=== PATIENT | female | born 1975 | race Caucasian/White ===

== ENCOUNTER → 2022-10-19 14:21 | Outpatient (CLI) | payer OTHER, SELFPAY ==
--- NOTE | ~2022-10-19 | US_ITS ---
EXAMINATION: US transvaginal DATE: 10/19/2022 14:58 INDICATION: Excessive frequent menstruation. Comparison:No prior studies for comparison. TECHNIQUE: Multiple endovaginal sonographic images of the pelvis performed. FINDINGS: The uterus measures 9.7 x 5.9 x 6.8 cm. The endometrium is thickened and heterogeneous cuate uring 1.7 cm. There is a complicated right ovarian cyst measuring 3.5 x 2.3 x 3.3 cm with low level internal echoes and internal septation. Left ovary is unremarkable measuring 1.7 x 1.5 x 1.4 cm. There is no free fluid in the pelvis. There are no abnormal masses seen on either side. IMPRESSION: 1. Thickened heterogeneous endometrium measuring 1.7 cm. 2: Complicated right ovarian cyst measuring 3.5 cm. Reviewed, dictated and finalized at location A. END ARCHITECT
== END ==
PROVIDERS: PCP Nurse Practitioner; Visit Provider Nurse Practitioner
DX: N92.1 Excessive and frequent menstruation with irregular cycle (principal); N83.201 Unspecified ovarian cyst, right side
CPT/HCPCS: 76830

== ENCOUNTER 2022-10-27 16:00 | Observation (INO) | payer OTHER, SELFPAY ==
[2022-10-27 16:04] VITALS: BP 119/75; PULSE 83; RESP 17; TEMP 37.1; O2SAT 100
[2022-10-27 16:20] LABS: Basophils Absolute Auto 0.1 K/mm3 (0.0-0.1); Basophils Percent Auto 1.5 % (0.2-1.2); Eosinophils Absolute Auto 0.1 K/mm3 (0-0.3); Eosinophils Percent Auto 2.2 % (0-4.4); Hematocrit 29.1 % (37.0-47.0); Hemoglobin 9.2 g/dL (12.0-15.0); Immature Granulocyte Absolute 0.03 K/mm3 (0.00-0.031); Immature Granulocyte Percent A 0.5 % (0-0.5); Lymphocytes Absolute Auto 0.67 K/mm3 (0.9-3.2); Lymphocytes Percent Auto 11.3 % (18.3-44.2); Mean Corpuscular HGB Conc 31.6 g/dl (32-36); Mean Corpuscular Volume 88.4 fl (80-100); Mean Platelet Volume 9.1 fl (7.4-10.4); Monocytes Absolute Auto 0.5 K/mm3 (0.1-0.6); Monocytes Percent Auto 8.3 % (2.6-8.5); Neutrophils Absolute Auto 4.5 K/mm3 (1.3-6.7); Neutrophils Percent Auto 76.2 % (45.5-73.1); Platelet Count Result 458 k/mm3 (150-375); Red Blood Count 3.29 M/mm3 (4.2-5.4); Red Cell Distribution Width 13.1 % (11.5-14.5); White Blood Count 5.9 K/mm3 (4.5-10.0)
--- NOTE | 2022-10-27 19:59 | ED.PREGNANCY ---
HPI - General Chief complaint: Vaginal Bleeding <Monique Tubbs PA-C - Last Filed: 10/28/22 00:05> Stated complaint: vaginal bleeding <ALEXANDER Cornell Last Filed: 10/28/22 00:05> Time Seen by Provider: 10/27/22 18:08 <Monique Tubbs PA-C - Last Filed: 10/28/22 00:05> Source: patient <ALEXANDER Cornell Last Filed: 10/28/22 00:05> Mode of arrival: ambulatory <ALEXANDER Cornell Last Filed: 10/28/22 00:05> Limitations: no limitations <Monique Tubbs PA-C - Last Filed: 10/28/22 00:05> History of Present Illness HPI Narrative: Patient is a 47-year-old female who presents the ED with report of vaginal bleeding. Patient reports she has had increasingly heavy and prolonged menstrual cycles for the last 1 year. She states she has had fairly persistent vaginal bleeding since August of last year and only maybe had about 5 days without bleeding since then. She saw Dr. Grimaldo's nurse practitioner last Sunday, at which point she was told her iron was low. Pelvic ultrasound performed at that time which showed findings of endometriosis and right ovarian cyst. She is scheduled for a D&C and exploratory laparotomy on 11/06. Patient reports having worsening bleeding today to the point it is impeding her daily activities. She states she has been going through a super pad and tampon every hour. Some clots noted. Patient also reported feeling slightly dizzy and lightheaded today, which prompted her presentation. She also reports some lower abdominal discomfort, denies any syncope, fevers, dysuria, nausea, vomiting. <ALEXANDER Cornell Last Filed: 10/28/22 00:05> Related Data Home medications: Home Medications Medication Instructions Recorded Confirmed amoxicillin 500 mg tablet 500 mg PO TID 10/27/22 10/27/22 cholecalciferol (vitamin D3) 5,000 unit BYMOUTH DAILY 10/27/22 10/27/22 escitalopram oxalate 5 mg tablet 5 mg PO DAILY 10/27/22 10/27/22 levothyroxine 88 mcg tablet 88 mcg PO DAILY 10/27/22 10/27/22 <Monique Tubbs PA-C - Last Filed: 10/28/22 00:05> Allergies/Adverse reactions: Allergies Allergy/AdvReac Type Severity Reaction Status Date / Time codeine Allergy Unknown Verified 11/17/14 19:07 <Monique Tubbs PA-C - Last Filed: 10/28/22 00:05> Review of Systems Review of Systems: CONSTITUTIONAL: Denies fever, chills, or sweats. CARDIOVASCULAR: Denies chest pain. RESPIRATORY: Denies dyspnea. GASTROINTESTINAL: See HPI. GENITOURINARY: See HPI. Denies dysuria or hematuria. MUSCULOSKELETAL: Denies back pain, joint pain, or myalgia. NEUROLOGIC: See HPI. <Monique Tubbs PA-C - Last Filed: 10/28/22 00:05> All systems reviewed & are unremarkable except as noted in HPI and below <Monique Tubbs PA-C - Last Filed: 10/28/22 00:05> [facility] Past Medical History Medical History: Medical History (Updated 10/27/22 @ 23:15 by Monique Tubbs PA-C) No pertinent past medical history <Monique Tubbs PA-C - Last Filed: 10/28/22 00:05> Surgical History Surgical History: Surgical History (Updated 10/27/22 @ 20:03 by Monique Tubbs PA-C) No pertinent past surgical history <Monique Tubbs PA-C - Last Filed: 10/28/22 00:05> Social History Social History: Social History (Updated 10/27/22 @ 20:03 by Monique Tubbs PA-C) Smoking status: Never smoker Alcohol intake: current Drinks per week: 4 Substance use: never Substance use type: does not use Lack of Transportation: No Lack of Food: Never True Current Housing: I Have Housing Concerned About Future Housing: No Difficulty Paying Gas/Electric Bills: No Difficulty Paying for Meds: No Currently Unemployed: No Education: Master's Degree or Higher Difficulty w/ Childcare or Family Care: No Spiritual care concerns: No <Monique Tubbs PA-C - Last Filed
[2022-10-27] MEDS: SODIUM CHLORIDE 0.9% IV 1,000 ML 999 ML IV CONT (21:30)
[2022-10-27] MEDS: TRANEXAMIC ACID 1,000MG/ISO100 1,000 MG/100 ML BAG 200 MG IVPB ×2 (22:00→23:08)
[2022-10-27 22:06] LABS: Alanine Aminotransferase 17 U/L (6-35); Albumin Level 3.6 g/dL (3.5-5.1); Alkaline Phosphatase 75 U/L (38-126); Anion Gap 6 mmol/L (8-16); Aspartate Amino Transferase 23 U/L (14-36); Bilirubin,Total 0.5 mg/dL (0.2-1.3); Blood Urea Nitrogen 14 mg/dL (7-17); Carbon Dioxide 24 mmol/L (22-30); Chloride 107 mmol/L (98-107); Estimated CRCL calculation 82 ml/min; Estimated Glomerular Filt Rate > 60; Glucose 85 mg/dL (65-110); Potassium 3.6 mmol/L (3.4-5.0); Sodium 137 mmol/L (137-145)
[2022-10-27 22:14] LABS: Amorphous Sediment Urine Few; Bacteria Urine Trace /hpf; Mucus Urine Rare /lpf; RBC Urine 51-75 /hpf (0-2); WBC Urine 0-3 /hpf
[2022-10-27 22:17] LABS: Add Urine Microscopic? YES; Appearance Urine Cloudy (Clear); Bilirubin Urine Negative (Negative); Blood Urine 3+ (Negative); Color Urine Red (Yellow); Glucose Urine UA Negative (Negative); Ketones Urine Negative (Negative); Leukocyte Esterase Ur Negative LEU/UL (Negative); Nitrate Urine Negative (Negative); Protein Urine 2+ mg/dL (Negative); Specific Grav Ur <= 1.005 (1.001-1.035); Urobilinogen Urine 0.2 mg/dL (<2.0)
[2022-10-27 22:28] LABS: Influenza A QL RT-PCR Negative (Negative); Influenza B QL RT-PCR Negative (Negative); SARS-CoV-2 RNA PCR Negative
[2022-10-27 23:03] VITALS: BP 132/78; PULSE 81; RESP 18; TEMP 36.6; O2SAT 99
[2022-10-27 23:06] VITALS: BP 126/68; PULSE 82; RESP 18; TEMP 36.6; O2SAT 100
--- NOTE | 2022-10-27 23:29 | ADMGEN ---
This patient, Sienna Delgado, was admitted to Medical Room 244-. Patient/family oriented to hospital policies and general routines including ID bracelet, bed and alarms, visiting hours, pain management, procedures, bathroom and other care routines, personal items, smoking policy, room service/diet, and visiting hours. Information on how to activate the Rapid Response Team has been discussed. Patient/Family are encouraged to report perceived risks to care and to ask questions if they do not understand what they are told or what they should do.
[2022-10-27 23:30] VITALS: BP 123/65; PULSE 79; RESP 18; TEMP 36.6; O2SAT 100; BMI 31.3
[2022-10-28] VITALS (13 sets, daily range): BP systolic 104–132; BP diastolic 63–80; PULSE 69–84; RESP 16–20; TEMP 36.3–37.1; O2SAT 97–100
--- NOTE | 2022-10-28 05:10 | PC.NURSE ---
Primary RN for this pt went home sick before pt was charted off the board. This RN is charting the pt off the board at this time.
[2022-10-28 05:44] LABS: Basophils Absolute Auto 0.1 K/mm3 (0.0-0.1); Basophils Percent Auto 1.3 % (0.2-1.2); Eosinophils Absolute Auto 0.1 K/mm3 (0-0.3); Eosinophils Percent Auto 2.1 % (0-4.4); Hematocrit 24.4 % (37.0-47.0); Hemoglobin 7.8 g/dL (12.0-15.0); Immature Granulocyte Absolute 0.02 K/mm3 (0.00-0.031); Immature Granulocyte Percent A 0.4 % (0-0.5); Lymphocytes Absolute Auto 1.36 K/mm3 (0.9-3.2); Lymphocytes Percent Auto 29.1 % (18.3-44.2); Mean Corpuscular Hemoglobin 27.8 pg (26-34); Mean Corpuscular Volume 86.8 fl (80-100); Mean Platelet Volume 9.6 fl (7.4-10.4); Monocytes Absolute Auto 0.4 K/mm3 (0.1-0.6); Monocytes Percent Auto 9.2 % (2.6-8.5); Neutrophils Absolute Auto 2.7 K/mm3 (1.3-6.7); Neutrophils Percent Auto 57.9 % (45.5-73.1); Platelet Count Result 426 k/mm3 (150-375); Red Blood Count 2.81 M/mm3 (4.2-5.4); Red Cell Distribution Width 12.7 % (11.5-14.5); White Blood Count 4.7 K/mm3 (4.5-10.0)
[2022-10-28] MEDS: TRANEXAMIC ACID 1,000MG/ISO100 1,000 MG/100 ML BAG 200 MG IVPB ×2 (08:54→19:33)
[2022-10-28] MEDS: ACETAMINOPHEN 325 MG TABLET 650 MG PO (09:44)
[2022-10-28] MEDS: diphenhydrAMINE HCl CAP 25 MG CAPSULE PO (09:44)
--- NOTE | 2022-10-28 12:04 | PM.IMHP ---
H&P: HPI History of Present Illness Date/Time: 10/28/22 12:04 Chief Complaint: abnormal uterine bleeding Narrative: 47 yo female who presented to the ER for heavy vaginal bleeding. Pt states she has had abnormal bleeding since this past summer. She states she would have irregular and heavy menses. Pt was seen by Dr. Grimaldo's office for this bleeding. Pt states she had labwork and and US performed. She states she is scheduled for have a hysteroscopy D&C next week. Pt presented to the ER stating her bleeding had increased. Pt was having bright red blood per vagina that was not stopping. Pt states she was soaking through pads. Pt was noted to have brisk red bleeding on exam in the ER. pt was also noted to be anemic. Review of Systems Review of Systems: All systems reviewed & are unremarkable except as noted in HPI and below PMFSH Past Medical History Medical History (Updated 10/28/22 @ 12:08 by Jarad Choi MD) No pertinent past medical history Surgical History Surgical History (Updated 10/27/22 @ 20:03 by Monique Tubbs PA-C) No pertinent past surgical history Social History Social History (Updated 10/27/22 @ 20:03 by Monique Tubbs PA-C) Smoking status: Never smoker Alcohol intake: current Drinks per week: 4 Substance use: never Substance use type: does not use Lack of Transportation: No Lack of Food: Never True Current Housing: I Have Housing Concerned About Future Housing: No Difficulty Paying Gas/Electric Bills: No Difficulty Paying for Meds: No Currently Unemployed: No Education: Master's Degree or Higher Difficulty w/ Childcare or Family Care: No Spiritual care concerns: No Meds Home Medications and Allergies Home Medications Medication Instructions Recorded Confirmed Type amoxicillin 500 mg tablet 500 mg PO TID 10/27/22 10/27/22 History cholecalciferol (vitamin D3) 5,000 unit BYMOUTH DAILY 10/27/22 10/27/22 History escitalopram oxalate 5 mg tablet 5 mg PO DAILY 10/27/22 10/27/22 History levothyroxine 88 mcg tablet 88 mcg PO DAILY 10/27/22 10/27/22 History Allergies Allergy/AdvReac Type Severity Reaction Status Date / Time codeine Allergy Unknown Verified 11/17/14 19:07 Vital Signs Vital Signs - 24 hr 10/27/22 16:04 10/27/22 23:30 10/27/22 23:30 Temperature 98.8 F 97.8 F 97.8 F Pulse Rate 83 79 79 Respiratory Rate 17 18 18 Blood Pressure 119/75 123/65 123/65 Pulse Oximetry 100 100 100 Oxygen Delivery 10/27/22 23:03 10/27/22 23:06 10/28/22 00:11 Temperature 97.8 F 97.8 F Pulse Rate 81 82 Respiratory Rate 18 18 Blood Pressure 132/78 126/68 Pulse Oximetry 99 100 Oxygen Delivery Room Air 10/28/22 05:34 10/28/22 10:40 10/28/22 10:55 Temperature 97.7 F 98.1 F 97.6 F Pulse Rate 69 73 83 Respiratory Rate 17 18 18 Blood Pressure 104/63 121/75 119/74 Pulse Oximetry 100 99 98 Oxygen Delivery 10/28/22 11:55 Temperature 98.0 F Pulse Rate 72 Respiratory Rate 18 Blood Pressure 125/74 Pulse Oximetry 98 Oxygen Delivery Exam Const: General: cooperative, healthy appearing, comfortable and no acute distress Resp: Effort & Inspection: normal respiratory effort and able to speak in complete sentences Cardio: Rate: regular rate Rhythm: regular rhythm GI: Inspection: normal to inspection GI Palp: No abdominal tenderness, Yes Soft to palpation, No Tenderness to palpation present (GI) and No Rebound tenderness present Psych: Appearance: grossly normal Mental Status: mental status grossly normal Affect: normal affect H&P: Results Labs Labs: Short CBC 10/27/22 10/28/22 Range/Units 16:14 05:10 WBC 5.9 4.7 (4.5-10.0) K/mm3 Hgb 9.2 L 7.8 L (12.0-15.0) g/dL Hct 29.1 L 24.4 L (37.0-47.0) % Plt Count 458 H 426 H (150-375) k/mm3 BMP 10/27/22 21:47 Sodium 137 Potassium 3.6 Chloride 107 Carbon Dioxide 24 BUN 14 Creatinine 0.70 Glucose 85 Calcium 8.0 L Liver F
--- NOTE | 2022-10-28 12:10 | PM.GYNPNOP ---
CEREAL POPPER - A/P Assessment and plan (1) Abnormal uterine bleeding (AUB): Code(s): N93.9 - Abnormal uterine and vaginal bleeding, unspecified Status: Acute Assessment and Plan: 47 yo female who presents for AUB H/H dropped to 7.8/24 this AM, pt asymptomatic pt consented for blood transfusion. 2 u pRBC ordered Pt has had improvement in bleeding with medications will repeat TXA IV today plan for provera 10 mg BID discussed that if bleeding continues or worsens, will proceed to the OR for D&C (2) Acute blood loss anemia: Code(s): D62 - Acute posthemorrhagic anemia Status: Acute Time Spent With Patient Time: Total time spent is greater than 50% in coordination of care (as documented) at patient's floor/unit and/or counseling patient: Time with patient: less than 15 minutes CEREAL POPPER- PN:Yo Post-Op Subjective Date/time seen: 10/28/22 12:10 Interval history: 47 yo female admitted for AUB. Pt passed a large vaginal blood clot yesterday and had bright red bleeding. pt states her bleeding has improved overnight. H/H had dropped this AM. Pt is asymptomatic. Pt denies any abdominal or pelvic pain. Review of Systems Review of Systems: All systems reviewed & are unremarkable except as noted in HPI and below Exam Const: General: cooperative, healthy appearing, comfortable and no acute distress Resp: Effort & Inspection: normal respiratory effort and able to speak in complete sentences Cardio: Rate: regular rate Psych: Appearance: grossly normal Mental Status: mental status grossly normal Speech and movement: Normal speech and movement present Affect: normal affect CEREAL POPPER - PN: Obj Data Vital Signs Vital Signs: Vital Signs - 24 hr 10/27/22 16:04 10/27/22 23:30 10/27/22 23:30 Temperature 98.8 F 97.8 F 97.8 F Pulse Rate 83 79 79 Respiratory Rate 17 18 18 Blood Pressure 119/75 123/65 123/65 Pulse Oximetry 100 100 100 Oxygen Delivery 10/27/22 23:03 10/27/22 23:06 10/28/22 00:11 Temperature 97.8 F 97.8 F Pulse Rate 81 82 Respiratory Rate 18 18 Blood Pressure 132/78 126/68 Pulse Oximetry 99 100 Oxygen Delivery Room Air 10/28/22 05:34 10/28/22 10:40 10/28/22 10:55 Temperature 97.7 F 98.1 F 97.6 F Pulse Rate 69 73 83 Respiratory Rate 17 18 18 Blood Pressure 104/63 121/75 119/74 Pulse Oximetry 100 99 98 Oxygen Delivery 10/28/22 11:55 Temperature 98.0 F Pulse Rate 72 Respiratory Rate 18 Blood Pressure 125/74 Pulse Oximetry 98 Oxygen Delivery Intake/Output Intake/Output: Intake & Output 10/25/22 10/26/22 10/27/22 10/28/22 23:59 23:59 23:59 23:59 Intake Total 100 1100 Balance 100 1100 Meds/Results Medications: Active Medications Generic Name Dose Route Start Last Admin Trade Name Freq PRN Reason Stop Dose Admin Sodium Chloride 250 mls @ 30 mls/hr 10/28/22 08:05 Normal Saline Iv IV CONT 10/28/22 16:24 .[id number] STA Medroxyprogesterone Acetate 10 mg 10/28/22 09:00 10/28/22 08:54 Medroxyprogesterone Acetate 2.5 Mg Tablet PO 10 mg QAM OMAR Administration Labs 10/28/22 05:10 10/27/22 21:47 Labs: Laboratory Results - last 24 hr 10/27/22 10/27/22 10/27/22 16:14 21:47 21:47 WBC 5.9 RBC 3.29 L Hgb 9.2 L Hct 29.1 L MCV 88.4 MCH 28.0 MCHC 31.6 L RDW 13.1 Plt Count 458 H MPV 9.1 Immature Gran % (Auto) 0.5 Neut % (Auto) 76.2 H Lymph % (Auto) 11.3 L [place] % (Auto) 8.3 Eos % (Auto) 2.2 Baso % (Auto) 1.5 H Lymph # (Auto) 0.67 L [place] # (Auto) 0.5 Eos # (Auto) 0.1 Baso # (Auto) 0.1 Abs Immat Gran (auto) 0.03 Absolute Neuts (auto) 4.5 Absolute Nucleated RBC 0.0 Nucleated RBC % 0.0 Sodium 137 Potassium 3.6 Chloride 107 Carbon Dioxide 24 Anion Gap 6 L BUN 14 Creatinine 0.70 Estim Creat Clear Calc 82 Estimated GFR > 60 Glucose 85 Calcium 8.0 L Total Bilirubin 0.5 AST 23 ALT
[2022-10-29 06:00] VITALS: BP 120/66; PULSE 78; RESP 20; TEMP 36.6; O2SAT 98
[2022-10-29 06:18] LABS: Hematocrit 34.1 % (37.0-47.0); Hemoglobin 11.4 g/dL (12.0-15.0); Mean Corpuscular HGB Conc 33.4 g/dl (32-36); Mean Corpuscular Hemoglobin 28.1 pg (26-34); Mean Corpuscular Volume 84.2 fl (80-100); Mean Platelet Volume 9.7 fl (7.4-10.4); Platelet Count Result 435 k/mm3 (150-375); Red Blood Count 4.05 M/mm3 (4.2-5.4); Red Cell Distribution Width 13.2 % (11.5-14.5); White Blood Count 7.1 K/mm3 (4.5-10.0)
--- NOTE | 2022-10-29 08:26 | PM.GYNPNOP ---
COMMUNICATIONS FIELD TECHNICIAN - A/P Assessment and plan (1) Abnormal uterine bleeding (AUB): Code(s): N93.9 - Abnormal uterine and vaginal bleeding, unspecified Status: Acute Assessment and Plan: 47yo female with AUB Pt received 4 doses of IV TXA this admission she has been on provera 10mg BID H/H improved after transfusion pt feels like her bleeding worsens throughout the day, she states she would not feel comfortable being discharged or going to work and waiting for her surgery on 11/06. pt has been NPO since midnight, will proceed with dilation and curettage for AUB today. Time Spent With Patient Time: Total time spent is greater than 50% in coordination of care (as documented) at patient's floor/unit and/or counseling patient: Time with patient: 15 - 25 minutes COMMUNICATIONS FIELD TECHNICIAN- PN:Yo Post-Op Subjective Date/time seen: 10/29/22 08:26 Interval history: 47 yo female admitted for AUB. Pt received 2 u pRBC yesterday. Blood counts have improved. Pt states her bleeding is controlled after medication but as the day progressed she started bleeding more. She passed more clots yesterday and continued to soak a pad. Pt states her cramping is mild discomfort this morning. Pt feels like her bleeding is the same as when she presented. Exam Const: General: cooperative, healthy appearing, comfortable and no acute distress Resp: Effort & Inspection: normal respiratory effort and able to speak in complete sentences Cardio: Rate: regular rate Psych: Appearance: grossly normal Mental Status: mental status grossly normal Speech and movement: Normal speech and movement present Affect: normal affect COMMUNICATIONS FIELD TECHNICIAN - PN: Obj Data Vital Signs Vital Signs: Vital Signs - 24 hr 10/28/22 10:40 10/28/22 10:55 10/28/22 11:55 Temperature 98.1 F 97.6 F 98.0 F Pulse Rate 73 83 72 Respiratory Rate 18 18 18 Blood Pressure 121/75 119/74 125/74 Pulse Oximetry 99 98 98 Oxygen Delivery 10/28/22 12:55 10/28/22 13:55 10/28/22 14:38 Temperature 97.9 F 97.8 F 97.8 F Pulse Rate 72 77 77 Respiratory Rate 18 18 18 Blood Pressure 128/70 131/78 131/78 Pulse Oximetry 99 99 99 Oxygen Delivery 10/28/22 14:53 10/28/22 15:53 10/28/22 16:53 Temperature 97.4 F L 97.9 F 98.3 F Pulse Rate 84 81 75 Respiratory Rate 20 20 18 Blood Pressure 116/74 121/77 132/80 Pulse Oximetry 97 98 100 Oxygen Delivery 10/28/22 17:47 10/28/22 21:02 10/28/22 20:00 Temperature 98.4 F 98.7 F Pulse Rate 80 73 80 Respiratory Rate 18 16 18 Blood Pressure 120/79 118/72 Pulse Oximetry 98 98 98 Oxygen Delivery Room Air 10/29/22 06:00 Temperature 97.9 F Pulse Rate 78 Respiratory Rate 20 Blood Pressure 120/66 Pulse Oximetry 98 Oxygen Delivery Intake/Output Intake/Output: Intake & Output 10/26/22 10/27/22 10/28/22 10/29/22 23:59 23:59 23:59 23:59 Intake Total 100 2820 450 Balance 100 2820 450 Meds/Results Medications: Active Medications Generic Name Dose Route Start Last Admin Trade Name Chidi PRN Reason Stop Dose Admin Medroxyprogesterone Acetate 10 mg 10/28/22 17:00 10/28/22 16:54 Medroxyprogesterone Acetate 2.5 Mg Tablet PO 10 mg BID OMAR Administration Labs 10/29/22 05:26 10/27/22 21:47 Labs: Laboratory Results - last 24 hr 10/27/22 10/29/22 21:47 05:26 WBC 7.1 RBC 4.05 L Hgb 11.4 L D Hct 34.1 L MCV 84.2 MCH 28.1 MCHC 33.4 RDW 13.2 Plt Count 435 H MPV 9.7 Blood Type O Positive Antibody Screen Negative Crossmatch See Detail
--- NOTE | 2022-10-29 08:50 | WPDANESEPPF ---
Anes - Initial Pre Proc Eval Procedure: Operation Date: 10/29/22 10:00 Proposed Procedures p Hysteroscopy Dilation and Curettage - Jarad Choi MD Date/Time: 10/29/22 08:50 Surgeon: Jarad Choi MD Pre Op Diagnosis: abnormal vaginal bleeding, symptomic anemia Patient Data Age: 47 Gender: F Height: 1.6 m Weight: 80.2 kg Last Vital Signs Temp 36.6 C 10/29/22 06:00 Pulse 78 10/29/22 06:00 Resp 20 10/29/22 06:00 BP 120/66 10/29/22 06:00 Pulse Ox 98 10/29/22 06:00 O2 Del Method Room Air 10/28/22 20:00 Allergies Allergy/AdvReac Type Severity Reaction Status Date / Time codeine Allergy Unknown Verified 11/17/14 19:07 Home Medications Medication Instructions Recorded Confirmed Type amoxicillin 500 mg tablet 500 mg PO TID 10/27/22 10/27/22 History cholecalciferol (vitamin D3) 5,000 unit BYMOUTH DAILY 10/27/22 10/27/22 History escitalopram oxalate 5 mg tablet 5 mg PO DAILY 10/27/22 10/27/22 History levothyroxine 88 mcg tablet 88 mcg PO DAILY 10/27/22 10/27/22 History Laboratory Tests 10/27/22 10/29/22 21:47 05:26 WBC 7.1 K/mm3 K/mm3 (4.5-10.0) RBC 4.05 M/mm3 L M/mm3 (4.2-5.4) Hgb 11.4 g/dL L D g/dL (12.0-15.0) Hct 34.1 % L % (37.0-47.0) MCV 84.2 fl fl (80-100) MCH 28.1 pg pg (26-34) MCHC 33.4 g/dl g/dl (32-36) RDW 13.2 % % (11.5-14.5) Plt Count 435 k/mm3 H k/mm3 (150-375) MPV 9.7 fl fl (7.4-10.4) Blood Type O Positive Antibody Screen Negative Crossmatch See Detail Patient hx anesthesia problems: none Family hx anesthesia problems: none Results Review: All pre-operative results and documents have been reviewed as part of the pre-operative evaluation. [facility] Past Medical History Medical History (Updated 10/29/22 @ 08:51 by Michael Epperson DO) History of colon cancer Hypothyroidism Obesity Surgical History Surgical History (Updated 10/29/22 @ 08:51 by Michael Epperson DO) History of colon resection No pertinent past surgical history Social History Social History (Updated 10/27/22 @ 20:03 by Monique Tubbs PA-C) Smoking status: Never smoker Alcohol intake: current Drinks per week: 4 Substance use: never Substance use type: does not use Lack of Transportation: No Lack of Food: Never True Current Housing: I Have Housing Concerned About Future Housing: No Difficulty Paying Gas/Electric Bills: No Difficulty Paying for Meds: No Currently Unemployed: No Education: Master's Degree or Higher Difficulty w/ Childcare or Family Care: No Spiritual care concerns: No Anes - Eval Final PreProcedure Day of Procedure 10/29/22 08:50 Patient weight: obese Heart: regular rate and rhythm Lungs: clear to auscultation Airway: Mallampati scale class II Neurological: alert and oriented Last oral intake: >/= 8 hours ASA classification: III Emergent: yes Anesthetic plan: proceed Anesthesia type and monitoring: general GIVS and standard monitoring Results Review: All pre-operative results and documents have been reviewed as part of the pre-operative evaluation. Informed Consent: The patient's anesthetic plan and its attendant risks and benefits were discussed with the patient/family/POA. Questions were solicited and answers provided to the satisfaction of the patient/family/POA.
--- NOTE | 2022-10-29 09:33 | WPDHPUPDATE1 ---
History and Physical Update Update Date/Time: 10/29/22 09:33 History and Physical has been reviewed, including an updated exam of the patient. There are NO changes in the patient's condition. Risks, benefits, and alternatives have been discussed and questions answered. Patient agrees to proceed with procedure.
[2022-10-29] MEDS: LIDOCAINE HCL 1% PF 30 ML VIAL INFILTRATE (10:01)
--- NOTE | 2022-10-29 10:05 | W.PM.PROC2 ---
Procedure Note - Detailed Date of Procedure 10/29/22 Pre-op Diagnosis abnormal vaginal bleeding, symptomic anemia Post-op Diagnosis Same Procedure Performed paracervical block hysteroscopy dilation & curettage Surgeon Jarad Choi MD Anesthesia General Indications abnormal uterine bleeding Findings normal appearing intrauterine cavity. Normal tubal ostia bilaterally Description of Procedure Christiane Delgado was admitted for AUB and symptomatic anemia. She was counseled as to the indications, risks, benefits, and alternatives to surgery, with the risks including bleeding, infection, damage to surrounding organs, VTE, and complications of anesthesia. Her verbal and written consent was obtained. PROCEDURE: The patient was taken to the OR and general anesthesia induced. She was prepped and draped in Bar stirrups with support of the back and bilateral lower extremities. I/O catheterization performed of the bladder. The above findings were noted. Infiltration with 1% lidocaine at the 3 and 9 o'clock cervical positions was performed. A single tooth tenaculum was placed on the anterior lip of the cervix. The uterus sounded to 9 cm. The cervix was dilated with sequential Maryjane dilators. Hysteroscopy, using a normal saline medium, was performed and showed the above findings. Sharp uterine curettage was then performed and tissue placed on Telfa. The tenaculum was removed and hemostasis was observed. The patient tolerated the procedure well. Sponge, lap, and needle counts were correct. The patient was taken to the recovery room in stable condition. Estimated Blood Loss 10 Urine Output 150 Drains No Packing No Pathology Yes (endometrial curettings ) Complications No immediate complications Condition Stable Disposition PACU [facility] Billing Surgery - Charge Forward: Surgery Billing
[2022-10-29 10:07] VITALS: BP 94/58; PULSE 79; RESP 17; TEMP 36.8; O2SAT 95
[2022-10-29] MEDS: LACTATED RINGERS 1,000 ML 30 ML IV CONT (10:07)
[2022-10-29 10:20] VITALS: BP 113/70; PULSE 66; RESP 12; O2SAT 95
[2022-10-29 10:35] VITALS: BP 106/71; PULSE 62; RESP 12; O2SAT 95
[2022-10-29] MEDS: ESCITALOPRAM OXALATE 5 MG TABLET PO (13:07)
[2022-10-29] MEDS: LEVOTHYROXINE SODIUM 88 MCG TABLET PO (13:07)
[2022-10-29 14:00] VITALS: BP 124/74; PULSE 76; RESP 18; TEMP 36.8; O2SAT 98
[2022-10-29] MEDS: AMOXICILLIN 500 MG CAPSULE PO (14:14)
--- NOTE | 2022-10-29 14:55 | PM.DS ---
DS: Admitting Diagnosis Discharge Date 10/29/22 Admitting Diagnosis abnormal uterine bleeding symptomatic anemia DS: Discharge Diagnosis Discharge Diagnosis (1) Symptomatic anemia: Code(s): D64.9 - Anemia, unspecified Status: Acute (2) Abnormal uterine bleeding (AUB): Code(s): N93.9 - Abnormal uterine and vaginal bleeding, unspecified Status: Acute DS: Summary Hospital Course Hospital Course: 47 yo female who presented to the ED with heavy vaginal bleeding. Pt was found to be anemic. Pt was admitted for observation and medical management. Pt received 2 units pRBCs. She continued to bleeding and opted for surgical management on hospital day 2. Hysteroscopy D&C was performed. Pt remained hemodynamically stable after transfusion. Pt's bleeding was observed for several hours postoperatively and was noted to be stable. Plan to discharge home on progesterone to stabilize bleeding until she can follow up outpatient. Status at Discharge Functional status at discharge: independent ambulation Overall status at discharge: patient is back to baseline Time Spent with Patient Time attestation: Total time spent providing and/or coordinating discharge services: Time spent: Less than 30 minutes Exam Const: General: cooperative, healthy appearing, comfortable and no acute distress Resp: Effort & Inspection: normal respiratory effort and able to speak in complete sentences Cardio: Rate: regular rate Psych: Appearance: grossly normal Mental Status: mental status grossly normal Speech and movement: Normal speech and movement present Affect: normal affect DS: Data Data Completed and Pending Pending studies at discharge: Pending at discharge 10/29/22 09:55 Surgical [PTH] Routine Labs on day of discharge: Labs from last 24 hours 10/29/22 10/27/22 05:26 21:47 WBC 7.1 RBC 4.05 L Hgb 11.4 L D Hct 34.1 L MCV 84.2 MCH 28.1 MCHC 33.4 RDW 13.2 Plt Count 435 H MPV 9.7 Crossmatch See Detail Discharge Plan Discharge Attending physician on discharge: Jarad Choi Discharging Clinician: Jarad Choi Patient Disposition: Home, Self-Care Activity: as tolerated and pelvic rest Diet: regular Patient Instructions: Antibiotic Form, Dilation and Curettage (DC) Stand Alone Forms: General Discharge Information Follow-up/Referrals: Nikki Grimaldo MD [Physician] - Discharge Medications: New medroxyprogesterone [Provera] 2.5 mg Tablet 10 mg PO DAILY Qty: 10 0RF Continued amoxicillin 500 mg tablet 500 mg PO TID levothyroxine 88 mcg tablet 88 mcg PO DAILY escitalopram oxalate 5 mg tablet 5 mg PO DAILY cholecalciferol (vitamin D3) 5,000 unit BYMOUTH DAILY Date of admission: 10/27/22 21:30 Primary Care Provider: Ruben,Khai Alfredo Admitting Provider: Jarad Choi Attending physician on admission: Jarad Choi Condition: Stable
== END 2022-10-29 15:39 | disposition home or self-care (01) ==
LOC: ANHED 21:39 → ANH2MED 22:43
PROVIDERS: Emergency Medicine; Physician Assistant; Admitting Provider Student in an Organized Health Care Education/Training Program; Emergency Provider Emergency Medicine; PCP Internal Medicine; Visit Provider Student in an Organized Health Care Education/Training Program
PROC: 0U5B8ZZ Destruction of Endometrium, Via Natural or Artificial Opening Endoscopic (ICD-10-PCS; CPT 58563; principal; 2022-10-29 10:00)
DX: N93.9 Abnormal uterine and vaginal bleeding, unspecified (principal); D62 Acute posthemorrhagic anemia; Z20.822 Contact with and (suspected) exposure to COVID-19
CPT/HCPCS: 58558; 36415; 36430; 80053; 81001; 85025; 85027; 86850; 86900; 86901; 86923; 87636; 88305; 96361; 96365; 96366; 96367; 99285; A9270; G0378; J0131; J2250; J2704; J3010; J7030; J7120; P9016

== ENCOUNTER → 2022-12-26 15:43 | Outpatient (CLI) | payer OTHER, SELFPAY ==
--- NOTE | ~2022-12-26 | MM_ITS ---
EXAMINATION: MM screening kezia BI w laura HISTORY: Screening mammogram TECHNIQUE: Craniocaudal and mediolateral oblique 3-D tomosynthesis images were obtained and synthetic 2-D images were generated. CAD analysis was submitted and interpreted. COMPARISON: No prior mammogram is available for comparison at this institution. BREAST PARENCHYMAL COMPOSITION: The breasts are heterogeneously dense, which may obscure small masses . FINDINGS: There is no evidence of suspicious mass, calcification, or architectural distortion to sugg est malignancy in either breast. There has been no suspicious interval change. IMPRESSION: 1. No mammographic evidence of malignancy. 2. Recommend routine screening mammography in one year. BI-RADS Category 1: Negative Reviewed, dictated and finalized at location A.
== END ==
PROVIDERS: PCP Internal Medicine; Visit Provider Nurse Practitioner
DX: Z12.31 Encounter for screening mammogram for malignant neoplasm of breast (principal)
CPT/HCPCS: 77063; 77067

== ENCOUNTER 2023-03-19 11:22 | Outpatient (CLI) | payer OTHER, SELFPAY ==
--- NOTE | ~2023-03-19 | US_ITS ---
Pelvic ultrasound. Clinical History: Ovarian cyst Technique: Realtime transabdominal and transvaginal scanning of the pelvis was performed. Color flow Doppler and Doppler spectral analysis were performed. Findings: The uterus is anteverted. The endometrial stripe has a thickness of 6 mm. Ill-defined post erior intramural fibroid measures 3.1 cm in diameter. Probable lower uterine segment fibroid measures 1.5 cm in diameter. Additional ill-defined fibroid measures 1.8 cm in diameter.. The right ovary measures 1.8 x 1.3 x 2.0 cm. No significant right ovarian or adnexal mass is seen. The left ovary measures 1.9 x 1.5 x 1.7 cm. No significant left ovarian or adnexal mass is seen. There is no evidence of free fluid in the cul de sac. Impression: Ill-defined uterine fibroids as above. Relatively poor evaluation of the ovaries due to technical limitations in visualization. Reviewed, dictated and finalized at location . Impression: Ill-defined uterine fibroids as above. Relatively poor evaluation of the ovaries due to technical limitations in visua lization.
== END 2023-03-19 11:23 ==
PROVIDERS: PCP Obstetrics & Gynecology Gynecology; Visit Provider Obstetrics & Gynecology Gynecology
DX: N83.201 Unspecified ovarian cyst, right side (principal); D25.9 Leiomyoma of uterus, unspecified
CPT/HCPCS: 76830

== ENCOUNTER 2024-12-16 13:15 | Outpatient (CLI) | payer OTHER, SELFPAY ==
--- NOTE | ~2024-12-16 | MM_ITS ---
EXAMINATION: MM screening kezia BI w laura HISTORY: Screening TECHNIQUE: Craniocaudal and mediolateral oblique 3-D tomosynthesis images were obtained and synthetic 2-D images were generated. CAD analysis was submitted and interpreted. COMPARISON: 12/26/2022 BREAST PARENCHYMAL COMPOSITION: There are scattered areas of fibroglandular density. FINDINGS: Stable parenchymal pattern without suspicious microcalcifications, architectural distortion, discrete masses or significant asymmetry. IMPRESSION: 1. No mammographic evidence of malignancy. 2. Recommend routine screening mammography in one year. BI-RADS Category 1: Negative Reviewed, dictated and finalized at location A.
== END 2024-12-16 13:16 | disposition home or self-care (01) ==
PROVIDERS: PCP Nurse Practitioner; Visit Provider Nurse Practitioner
DX: Z12.31 Encounter for screening mammogram for malignant neoplasm of breast (principal)
CPT/HCPCS: 77063; 77067